=== PATIENT | female | born 1990 | race Caucasian/White ===

== ENCOUNTER 2017-11-30 09:49 | Emergency (ER) | payer MEDICAID ==
[~2017-11-30] VITALS: Ht 167.6 cm; Wt 43.1 kg
[2017-11-30 10:25] LABS: URINE BILIRUBIN NEGATIVE (Negative); URINE BLOOD 3+ (Negative); URINE CLARITY CLEAR; URINE COLOR ORANGE; URINE GLUCOSE-RANDOM NEGATIVE (Negative); URINE KETONES NEGATIVE (Negative); URINE LEUKOCYTES NEGATIVE (Negative); URINE NITRITE NEGATIVE (Negative); URINE PROTEIN NEGATIVE (Negative); URINE UROBILINOGEN 0.2 E.U./dl (0.2-1.0)
[2017-11-30 10:32] LABS: ABSOLUTE EOSINOPHILS 0.2 thou/uL (0.0-0.7); ABSOLUTE LYMPHOCYTES 1.5 thou/uL (0.8-5.3); ABSOLUTE MONOCYTES 0.5 thou/uL (0.0-1.2); ABSOLUTE NEUTROPHILS 5.8 thou/uL (1.6-8.1); BASOPHILS 0.5 %; EOSINOPHILS 2.9 %; HEMATOCRIT 44.9 % (37.0-47.0); HEMOGLOBIN 14.9 gm/dL (12.0-15.0); LYMPHOCYTES 18.1 %; MCH 30.5 pg (26.0-34.0); MCHC 33.1 g/dL (28.0-37.0); MCV 92.1 fL (80.0-100.0); MONOCYTES 5.6 %; MPV 9.3 fl. (7.2-11.1); NUCLEATED RBCS 0 /100WBC; PLATELET COUNT* 273 thou/uL (150-400); POLYS 72.9 %; RBC 4.88 mil/uL (4.20-5.00); RDW-CV 13.6 % (10.5-14.5)
[2017-11-30 10:37] LABS: BACTERIA 1-9 Few /HPF (None Seen); CASTS None Seen /LPF (None Seen); CRYSTALS None Seen /LPF (None Seen); MUCUS None Seen strn/LPF (None Seen); SQUAMOUS 4-10 Moderate /LPF (0-3); URINE WBC 0-5 Rare /HPF (0-5)
[2017-11-30 10:41] LABS: CALCIUM 8.9 mg/dL (8.5-10.1); CREATININE 0.7 mg/dL (0.6-1.3); POTASSIUM 3.9 mmol/L (3.5-5.1)
[2017-11-30 10:45] LABS: ALBUMIN 4.3 g/dL (3.4-5.0); TOTAL BILIRUBIN 0.5 mg/dL (<0.1-1.0); TOTAL PROTEIN 7.6 g/dL (6.4-8.2)
[2017-11-30] MEDS ORDERED: ONDANSETRON HCL4 M2 PO (12:36)
[2017-11-30 13:08] VITALS: BP 91/63
== END 2017-11-30 13:12 | disposition home or self-care (01) ==
LOC: M.ERS 09:49
PROVIDERS: Nurse Practitioner Family
DX: K52.9 Noninfective gastroenteritis and colitis, unspecified (principal); N93.8 Other specified abnormal uterine and vaginal bleeding; E03.9 Hypothyroidism, unspecified; Z87.01 Personal history of pneumonia (recurrent); F17.210 Nicotine dependence, cigarettes, uncomplicated

== ENCOUNTER 2018-02-13 13:12 | Emergency (ER) | payer OTHER, MEDICAID ==
[~2018-02-13] VITALS: Ht 177.8 cm; Wt 43.5 kg
[~2018-02-13 13:12] MED LIST: ONDANSETRON HCL4 M2 PO
[2018-02-13] MEDS ORDERED: PROZAC10 MG PO (13:21)
[2018-02-13 13:54] LABS: URINE BILIRUBIN NEGATIVE (Negative); URINE BLOOD 2+ (Negative); URINE CLARITY CLEAR; URINE COLOR YELLOW; URINE GLUCOSE-RANDOM NEGATIVE (Negative); URINE KETONES NEGATIVE (Negative); URINE LEUKOCYTES-REFLEX NEGATIVE (Negative); URINE NITRITE-REFLEX NEGATIVE (Negative); URINE PROTEIN TRACE (Negative); URINE SPECIFIC GRAVITY >= 1.030 (1.005-1.030)
[2018-02-13 14:00] LABS: SQUAMOUS 4-10 Moderate /LPF (0-3)
[2018-02-13 14:01] LABS: BACTERIA-REFLEX 1-9 Few /HPF (None Seen); URINE RBC 0-2 Rare /HPF (0-2); URINE WBC-REFLEX 0-5 Rare /HPF (0-5)
[2018-02-13 14:01] LABS: ABSOLUTE BASOPHILS 0.1 thou/uL (0.0-0.2); ABSOLUTE EOSINOPHILS 0.1 thou/uL (0.0-0.7); ABSOLUTE LYMPHOCYTES 1.7 thou/uL (0.8-5.3); ABSOLUTE MONOCYTES 0.4 thou/uL (0.0-1.2); ABSOLUTE NEUTROPHILS 3.6 thou/uL (1.6-8.1); BASOPHILS 0.9 %; EOSINOPHILS 1.4 %; HEMATOCRIT 41.2 % (37.0-47.0); HEMOGLOBIN 13.9 gm/dL (12.0-15.0); LYMPHOCYTES 28.7 %; MCH 30.7 pg (26.0-34.0); MCHC 33.7 g/dL (28.0-37.0); MCV 91.2 fL (80.0-100.0); MONOCYTES 7.5 %; MPV 9.1 fl. (7.2-11.1); NUCLEATED RBCS 0 /100WBC; PLATELET COUNT* 257 thou/uL (150-400); POLYS 61.5 %; RBC 4.51 mil/uL (4.20-5.00); RDW-CV 13.2 % (10.5-14.5); WBC 5.9 thou/uL (4.0-11.0)
[2018-02-13 14:02] LABS: CASTS None Seen /LPF (None Seen); CRYSTALS None Seen /LPF (None Seen); MUCUS 4-6 Moderate strn/LPF (None Seen)
[2018-02-13 14:07] LABS: CALCIUM 8.6 mg/dL (8.5-10.1); CREATININE 0.8 mg/dL (0.6-1.3); POTASSIUM 3.4 mmol/L (3.5-5.1)
[2018-02-13 14:09] LABS: APTT 28.4 Seconds (25.0-31.3); INR 1.1; PROTIME 11.2 Seconds (9.20-11.50)
[2018-02-13 14:17] LABS: TOTAL BILIRUBIN 0.7 mg/dL (<0.1-1.0); TOTAL PROTEIN 7.1 g/dL (6.4-8.2)
[2018-02-13] MEDS ORDERED: MEDROLDOSEPACK PO (14:39)
[2018-02-13] MEDS ORDERED: KEFLEX500 M1 PO (14:39)
[2018-02-13 15:20] VITALS: BP 120/85
== END 2018-02-13 15:26 | disposition home or self-care (01) ==
LOC: M.ERS 13:12
PROVIDERS: Physician Assistant
DX: R21 Rash and other nonspecific skin eruption (principal); E03.9 Hypothyroidism, unspecified; F17.210 Nicotine dependence, cigarettes, uncomplicated; Z91.013 Allergy to seafood; Z87.01 Personal history of pneumonia (recurrent)

== ENCOUNTER 2018-04-05 22:13 | Emergency (ER) | payer OTHER, MEDICAID ==
[~2018-04-05] VITALS: Ht 167.6 cm; Wt 45.4 kg
[~2018-04-05 22:13] MED LIST changes: +KEFLEX500 M1 PO; +MEDROLDOSEPACK PO; +PROZAC10 MG PO
[2018-04-05] MEDS ORDERED: NABUMETONE 750750 M1 PO (23:30)
[2018-04-05] MEDS ORDERED: TRAMADOL 50 MG50 MG PO (23:30)
[2018-04-05 23:55] VITALS: BP 108/77
== END 2018-04-05 23:56 | disposition home or self-care (01) ==
LOC: M.ERS 22:13
DX: M67.431 Ganglion, right wrist (principal); G89.29 Other chronic pain; M25.531 Pain in right wrist; E03.9 Hypothyroidism, unspecified; F17.210 Nicotine dependence, cigarettes, uncomplicated; Z87.01 Personal history of pneumonia (recurrent); Z91.013 Allergy to seafood

== ENCOUNTER 2018-10-22 23:08 | Emergency (ER) | payer OTHER, MEDICAID ==
[~2018-10-22] VITALS: Ht 167.6 cm; Wt 45.8 kg
[~2018-10-22 23:08] MED LIST changes: +NABUMETONE 750750 M1 PO; +TRAMADOL 50 MG50 MG PO
[2018-10-22] MEDS ORDERED: XULANE PATCH1 EACH TD (23:24)
[2018-10-23] MEDS ORDERED: ZOFRAN ODT4 MG PO ×2 (00:02→00:30)
[2018-10-23] MEDS ORDERED: TRAMADOL 50 MG50 MG PO (00:02)
[2018-10-23 00:40] VITALS: BP 130/90
== END 2018-10-23 00:40 | disposition home or self-care (01) ==
LOC: M.ERS 23:08
DX: G43.909 Migraine, unspecified, not intractable, without status migrainosus (principal); E03.9 Hypothyroidism, unspecified; Z91.013 Allergy to seafood

== ENCOUNTER 2019-04-16 10:12 | Emergency (ER) | payer OTHER, MEDICAID ==
[~2019-04-16] VITALS: Ht 167.6 cm; Wt 54.4 kg
[~2019-04-16 10:12] MED LIST changes: +XULANE PATCH1 EACH TD; +ZOFRAN ODT4 MG PO
[2019-04-16 10:38] LABS: URINE BILIRUBIN NEGATIVE (Negative); URINE BLOOD NEGATIVE (Negative); URINE CLARITY CLEAR; URINE COLOR YELLOW; URINE GLUCOSE-RANDOM NEGATIVE (Negative); URINE KETONES NEGATIVE (Negative); URINE LEUKOCYTES-REFLEX NEGATIVE (Negative); URINE PROTEIN NEGATIVE (Negative); URINE UROBILINOGEN 0.2 E.U./dl (0.2-1.0)
[2019-04-16 10:41] LABS: URINE NITRITE-REFLEX POSITIVE (Negative)
[2019-04-16 10:49] LABS: SQUAMOUS >10 Many /LPF (0-3)
[2019-04-16] MEDS ORDERED: MACROBID 100 M100 M1 PO (10:49)
[2019-04-16 10:50] LABS: BACTERIA-REFLEX >30 Many /HPF (None Seen); CASTS None Seen /LPF (None Seen); MUCUS >6 Heavy strn/LPF (None Seen); URINE RBC 0-2 Rare /HPF (0-2); URINE WBC-REFLEX 6-15 Few /HPF (0-5); WBC CLUMPS Few (None Seen)
[2019-04-16 10:51] LABS: CRYSTALS None Seen /LPF (None Seen)
[2019-04-16 10:58] VITALS: BP 114/74
== END 2019-04-16 10:59 | disposition home or self-care (01) ==
LOC: M.ERS 10:12
PROVIDERS: Nurse Practitioner Family
DX: N39.0 Urinary tract infection, site not specified (principal); G43.909 Migraine, unspecified, not intractable, without status migrainosus; Z87.01 Personal history of pneumonia (recurrent); E03.9 Hypothyroidism, unspecified; Z91.013 Allergy to seafood

== ENCOUNTER 2019-04-24 14:43 | Emergency (ER) | payer OTHER, MEDICAID ==
[~2019-04-24] VITALS: Ht 167.6 cm; Wt 47.6 kg
[~2019-04-24 14:43] MED LIST changes: +MACROBID 100 M100 M1 PO
[2019-04-24 15:15] LABS: URINE BILIRUBIN NEGATIVE (Negative); URINE BLOOD NEGATIVE (Negative); URINE CLARITY CLEAR; URINE COLOR YELLOW; URINE GLUCOSE-RANDOM NEGATIVE (Negative); URINE KETONES NEGATIVE (Negative); URINE LEUKOCYTES-REFLEX NEGATIVE (Negative); URINE NITRITE-REFLEX NEGATIVE (Negative); URINE PROTEIN NEGATIVE (Negative); URINE UROBILINOGEN 0.2 E.U./dl (0.2-1.0)
[2019-04-24] MEDS ORDERED: PYRIDIUM100 M1 PO (15:23)
[2019-04-24 16:48] LABS: ABSOLUTE LYMPHOCYTES 1.7 thou/uL (0.8-5.3); ABSOLUTE MONOCYTES 0.4 thou/uL (0.0-1.2); ABSOLUTE NEUTROPHILS 5.4 thou/uL (1.6-8.1); BASOPHILS 0.4 %; EOSINOPHILS 0.7 %; HEMATOCRIT 39.6 % (37.0-47.0); HEMOGLOBIN 13.5 gm/dL (12.0-15.0); LYMPHOCYTES 22.9 %; MCH 30.4 pg (26.0-34.0); MCHC 34.1 g/dL (28.0-37.0); MCV 89.2 fL (80.0-100.0); MONOCYTES 5.6 %; MPV 8.6 fl. (7.2-11.1); NUCLEATED RBCS 0 /100WBC; PLATELET COUNT* 342 thou/uL (150-400); POLYS 70.4 %; RBC 4.44 mil/uL (4.20-5.00); RDW-CV 13.3 % (10.5-14.5); WBC 7.6 thou/uL (4.0-11.0)
[2019-04-24 16:57] LABS: CALCIUM 8.6 mg/dL (8.5-10.1); CREATININE 0.7 mg/dL (0.6-1.3); POTASSIUM 3.9 mmol/L (3.5-5.1)
[2019-04-24 17:01] LABS: ALBUMIN 3.4 g/dL (3.4-5.0); TOTAL BILIRUBIN 0.1 mg/dL (<0.1-1.0); TOTAL PROTEIN 6.9 g/dL (6.4-8.2)
[2019-04-24] MEDS ORDERED: NABUMETONE 750750 M1 PO (17:17)
[2019-04-24 17:29] VITALS: BP 104/56
== END 2019-04-24 17:30 | disposition home or self-care (01) ==
LOC: M.ERS 14:43
PROVIDERS: Family Medicine; Nurse Practitioner Family
DX: R10.31 Right lower quadrant pain (principal); R10.32 Left lower quadrant pain; G43.909 Migraine, unspecified, not intractable, without status migrainosus; E03.9 Hypothyroidism, unspecified; Z91.013 Allergy to seafood; Z87.01 Personal history of pneumonia (recurrent)

== ENCOUNTER 2019-10-06 16:48 | Emergency (ER) | payer OTHER, MEDICAID ==
[~2019-10-06] VITALS: Ht 167.6 cm; Wt 47.6 kg
[~2019-10-06 16:48] MED LIST changes: +PYRIDIUM100 M1 PO
[2019-10-06 17:15] LABS: URINE BILIRUBIN NEGATIVE (Negative); URINE BLOOD TRACE (Negative); URINE CLARITY CLEAR; URINE COLOR YELLOW; URINE GLUCOSE-RANDOM NEGATIVE (Negative); URINE KETONES NEGATIVE (Negative); URINE LEUKOCYTES-REFLEX NEGATIVE (Negative); URINE NITRITE-REFLEX NEGATIVE (Negative); URINE PROTEIN NEGATIVE (Negative); URINE UROBILINOGEN 0.2 E.U./dl (0.2-1.0)
[2019-10-06 17:23] LABS: ABSOLUTE BASOPHILS 0.1 thou/uL (0.0-0.2); ABSOLUTE EOSINOPHILS 0.2 thou/uL (0.0-0.7); ABSOLUTE LYMPHOCYTES 1.8 thou/uL (0.8-5.3); ABSOLUTE MONOCYTES 0.5 thou/uL (0.0-1.2); ABSOLUTE NEUTROPHILS 4.5 thou/uL (1.6-8.1); EOSINOPHILS 2.2 %; HEMATOCRIT 42.8 % (37.0-47.0); HEMOGLOBIN 14.7 gm/dL (12.0-15.0); LYMPHOCYTES 25.5 %; MCH 31.1 pg (26.0-34.0); MCHC 34.3 g/dL (28.0-37.0); MCV 90.7 fL (80.0-100.0); MONOCYTES 7.2 %; NUCLEATED RBCS 0 /100WBC; PLATELET COUNT* 315 thou/uL (150-400); POLYS 64.1 %; RBC 4.72 mil/uL (4.20-5.00); RDW-CV 13.4 % (10.5-14.5)
[2019-10-06 17:30] LABS: CALCIUM 8.5 mg/dL (8.5-10.1); CREATININE 0.8 mg/dL (0.6-1.3); POTASSIUM 3.5 mmol/L (3.5-5.1)
[2019-10-06 17:35] LABS: ALBUMIN 4.2 g/dL (3.4-5.0); TOTAL BILIRUBIN 0.4 mg/dL (<0.1-1.0); TOTAL PROTEIN 7.3 g/dL (6.4-8.2)
[2019-10-06] MEDS ORDERED: IBUPROFEN 800800 M1 PO (17:42)
[2019-10-06 17:51] VITALS: BP 120/80
== END 2019-10-06 17:53 | disposition home or self-care (01) ==
LOC: M.ERS 16:48
PROVIDERS: Nurse Practitioner Psychiatric/Mental Health
DX: M54.5 Low back pain (principal); G43.909 Migraine, unspecified, not intractable, without status migrainosus; E03.9 Hypothyroidism, unspecified; Z87.01 Personal history of pneumonia (recurrent); Z91.013 Allergy to seafood

== ENCOUNTER 2019-11-28 19:43 | Emergency (ER) | payer OTHER, MEDICAID ==
[~2019-11-28] VITALS: Ht 167.6 cm; Wt 49.0 kg
[~2019-11-28 19:43] MED LIST changes: +IBUPROFEN 800800 M1 PO
[2019-11-28 21:56] VITALS: BP 115/70
== END 2019-11-28 21:57 | disposition home or self-care (01) ==
LOC: M.ERS 19:43
DX: R21 Rash and other nonspecific skin eruption (principal); E03.9 Hypothyroidism, unspecified; G43.909 Migraine, unspecified, not intractable, without status migrainosus; Z91.013 Allergy to seafood

== ENCOUNTER 2020-01-12 08:59 | Emergency (ER) | payer OTHER, MEDICAID ==
[~2020-01-12] VITALS: Ht 167.6 cm; Wt 47.6 kg
[2020-01-12 09:20] VITALS: BP 119/91
== END 2020-01-12 11:00 | disposition home or self-care (01) ==
LOC: M.ERS 08:59
DX: R50.9 Fever, unspecified (principal); Z20.828 Contact with and (suspected) exposure to other viral communicable diseases; R53.83 Other fatigue; E03.9 Hypothyroidism, unspecified; G43.909 Migraine, unspecified, not intractable, without status migrainosus; F17.210 Nicotine dependence, cigarettes, uncomplicated; Z91.013 Allergy to seafood

== ENCOUNTER 2021-01-02 09:23 | Emergency (ER) | payer OTHER, MEDICAID ==
[~2021-01-02] VITALS: Ht 167.6 cm; Wt 47.6 kg
[2021-01-02] MEDS ORDERED: MEDROLDOSEPACK PO (10:39)
[2021-01-02] MEDS ORDERED: PROAIR HFA8.5 GM INH (10:39)
[2021-01-02 10:51] VITALS: BP 91/67
== END 2021-01-02 10:52 | disposition home or self-care (01) ==
LOC: M.ERS 09:23
DX: J06.9 Acute upper respiratory infection, unspecified (principal); Z20.822 Contact with and (suspected) exposure to COVID-19; E03.9 Hypothyroidism, unspecified; F17.210 Nicotine dependence, cigarettes, uncomplicated; Z91.013 Allergy to seafood

== ENCOUNTER 2021-01-06 11:33 | Emergency (ER) | payer OTHER, MEDICAID ==
[~2021-01-06] VITALS: Ht 167.6 cm; Wt 47.6 kg
[~2021-01-06 11:33] MED LIST changes: +PROAIR HFA8.5 GM INH
[2021-01-06 12:55] LABS: INFLUENZA A ANTIGEN Negative (Negative); INFLUENZA B ANTIGEN Negative (Negative)
[2021-01-06 13:06] VITALS: BP 138/111
== END 2021-01-06 13:06 | disposition home or self-care (01) ==
LOC: M.ERS 11:33
PROVIDERS: Family Medicine
DX: F41.9 Anxiety disorder, unspecified (principal); Z20.822 Contact with and (suspected) exposure to COVID-19; E03.9 Hypothyroidism, unspecified; G43.909 Migraine, unspecified, not intractable, without status migrainosus; F17.210 Nicotine dependence, cigarettes, uncomplicated; Z91.013 Allergy to seafood

== ENCOUNTER 2021-02-02 12:02 | Emergency (ER) | payer OTHER, MEDICAID ==
[~2021-02-02] VITALS: Ht 167.6 cm; Wt 47.6 kg
[2021-02-02] MEDS ORDERED: MEDROLDOSEPACK PO (12:55)
[2021-02-02] MEDS ORDERED: APAP W/CODEINE1 TA2 PO (12:55)
[2021-02-02] MEDS ORDERED: CYCLOBENZAPRINE5 MG PO (12:55)
[2021-02-02 13:05] VITALS: BP 114/76
[2021-02-02] MEDS ORDERED: ONDANSETRON HCL4 M2 PO (13:23)
== END 2021-02-02 13:05 | disposition home or self-care (01) ==
LOC: M.ERS 12:02
DX: S16.1XXA Strain of muscle, fascia and tendon at neck level, initial encounter (principal); R51.9 Headache, unspecified; G43.909 Migraine, unspecified, not intractable, without status migrainosus; E03.9 Hypothyroidism, unspecified; F17.210 Nicotine dependence, cigarettes, uncomplicated; Z91.013 Allergy to seafood; V89.2XXA Person injured in unspecified motor-vehicle accident, traffic, initial encounter; Y93.89 Activity, other specified; Y92.89 Other specified places as the place of occurrence of the external cause; Y99.8 Other external cause status